=== PATIENT | male | born 1990 | race Caucasian/White ===

== ENCOUNTER 2020-10-10 18:13 | Emergency (ER) | payer BC, SELFPAY ==
--- NOTE | 2020-10-10 18:17 | ED.BACK ---
HPI - Back Pain/Injury General Chief Complaint: Back Pain/Injury Stated Complaint: back pain Time Seen by Provider: 10/10/20 18:17 Source: patient and RN notes reviewed History of Present Illness HPI Narrative: Patient is a 30-year-old male who presents the urgent care with complaints of low back pain radiating to both legs, worse on the left. Patient states that at 9 AM this morning he was walking up the stairs and felt an extreme pull in the lower back. Patient states that this happened approximately 1 year ago, he received a Toradol shot, and waited it out at home for approximately 1 week until it felt better. Patient states he did take 1 dose of naproxen as well as a leftover muscle relaxer. Patient states he is not sure what muscle relaxer that was. States that his pain has not really improved. States that he also used a heating pad throughout the day. Denies of any recent fall, trauma, heavy lifting, pushing or pulling to cause the injury. No other acute complaints. No acute distress noted. Patient aware of the plan of care. Some parts of this dictation were generated by voice recognition software and may contain typographical and/or grammatical inaccuracies. Related Data Allergies Allergy/AdvReac Type Severity Reaction Status Date / Time No Known Allergies Allergy Verified 10/10/20 18:24 Review of Systems Review of Systems: Narrative: CONSTITUTIONAL: Denies fever, chills, or sweats. EYES: Denies visual changes, redness, or discharge. ENT: Denies rhinorrhea, congestion, sore throat, or otalgia. CARDIOVASCULAR: Denies chest pain, palpitations, or edema. RESPIRATORY: Denies cough or dyspnea. GASTROINTESTINAL: Denies abdominal pain, nausea, vomiting, or diarrhea. GENITOURINARY: Denies dysuria or hematuria. SKIN: Denies rash or itching. MUSCULOSKELETAL: Reports of low back pain radiating to bilateral legs, more so on the left NEUROLOGIC: Denies headache, numbness, or weakness. All other systems reviewed are negative, except as documented in HPI. [facility] Family History Family History (Updated 05/22/19 @ 15:16 by DOCTOR UNKNOWN) Grandparent Diabetes mellitus Hypertension Asthma Family history of arthritis Family history of malignant neoplasm of testis Family history of malignant neoplasm of ovary Social History Social History Smoking status: Never smoker Alcohol intake: current Comments At the time of my signature, I reviewed and agree with the nursing past medical, surgical, social, and family history. There is no relevant family history pertinent to the patient complaint. Exam Narrative: Exam Narrative: GENERAL: This is a well-nourished, well-developed patient, in no apparent distress. HEAD: normocephalic, atraumatic. EYES: PERRL. Sclera clear/white. Vision is grossly intact. EARS: External ears normal NOSE: External nose normal with no obvious nasal discharge, nares without redness, no rhinorrhea. THROAT: Mucous membranes moist, posterior pharynx clear. NECK: Neck supple SKIN: warm, intact with no suspicious lesions or rash, good texture and turgor. NEURO: awake, alert, and oriented to person, place and time. There were no obvious focal neurologic abnormalities. EXTREMITIES: No clubbing, cyanosis, or edema. BACK: Diffuse lumbar tenderness with positive bilateral SLE, more noticeable to the left Course Vital Signs Vital signs: Vital Signs Temperature 99.1 F 10/10/20 18:25 Pulse Rate 99 10/10/20 18:25 Respiratory Rate 20 10/10/20 18:25 Blood Pressure 158/97 H 10/10/20 18:25 Pulse Oximetry 100 10/10/20 18:25 Temperature 99.1 F 10/10/20 18:25 Pulse Rate 99 10/10/20 18:25 Respiratory Rate 20 10/10/20 18:25 Blood Pressure 158/97 H 10/10/20 18:25 Pulse Oximetry 100 10/10/20 18:25 Reviewed-patient is informed that they may have pre-hypertension or hypertension based on a blood pressure reading in the department. I recommend the patient call the primary care pro
[2020-10-10 18:25] VITALS: BP 158/97; PULSE 99; RESP 20; TEMP 37.3; O2SAT 100
[2020-10-10] MEDS: predniSONE 20 MG TABLET 60 MG PO (18:31)
== END 2020-10-10 18:45 | disposition home or self-care (01) ==
PROVIDERS: Emergency Provider Nurse Practitioner Family; PCP Internal Medicine
DX: M54.31 Sciatica, right side (principal); S39.012A Strain of muscle, fascia and tendon of lower back, initial encounter; X58.XXXA Exposure to other specified factors, initial encounter; Y93.39 Activity, other involving climbing, rappelling and jumping off
CPT/HCPCS: 99203; G0463; J7512

== ENCOUNTER 2022-04-23 09:54 | Outpatient (CLI) | payer BC, SELFPAY ==
--- NOTE | ~2022-04-23 | XR_ITS ---
EXAMINATION: XR lumbar spine 2-3V DATE: 04/23/2022 10:14 INDICATION: Back pain of lumbar region with sciatica. TECHNIQUE: 3 views of lumbar spine were obtained. COMPARISON: None. FINDINGS: Bone alignment is normal. Vertebral body heights are normal. There is moderately decreased disc height at L4-L5 and severely decreased disc height at L5-S1 with endplate remodeling. Facet join ts are unremarkable. IMPRESSION: 1. Severe lower lumbar spondylosis. Reviewed, dictated and finalized at location A.
== END 2022-04-23 09:55 | disposition home or self-care (01) ==
PROVIDERS: PCP Internal Medicine; Visit Provider Internal Medicine
DX: M54.40 Lumbago with sciatica, unspecified side (principal); M47.817 Spondylosis without myelopathy or radiculopathy, lumbosacral region
CPT/HCPCS: 72100

== ENCOUNTER → 2022-06-11 07:55 | Outpatient (CLI) | payer BC, SELFPAY ==
--- NOTE | ~2022-06-11 | MR_ITS ---
EXAMINATION: MR lumbar spine wo con DATE: 06/11/2022 08:24 INDICATION: Lumbar radiculopathy with low back and bilateral leg pain TECHNIQUE: Magnetic resonance imaging (MRI) of the lumbar spine was performed without intravenous con trast. Sequences included sagittal T2-weighted FSE, sagittal T2-weighted FS FSE, sagittal T1-weighted FSE, and axial T2-weighted FSE. COMPARISON: Lumbar spine radiographs dated 04/23/2022 FINDINGS: 2 mm retrolisthesis L4 on L5. Minimal likely physiologic anterior wedging at T11 and T12. Additional likely developmental posterior wedging at L5 with 20% posterior vertebral body height loss. Severe di sc height loss at L5-S1 and moderate disc height loss at L4-L5, both with mild associated fibrovascul ar degenerative endplate changes. Marrow signal is otherwise normal. Additional mild disc height loss at T11-T12. The conus medullaris terminates at L1-L2. There is normal signal in the caudal spinal co rd. Paravertebral soft tissues are unremarkable. The following disc levels are specifically discussed : T12-L1: The disc does not extend beyond the endplate margin. There is no facet joint osteoarthritis. There is no neural foraminal stenosis. There is no central canal stenosis. L1-L2: The disc does not extend beyond the endplate margin. There is mild bilateral facet joint osteo arthritis. There is no neural foraminal stenosis. There is no central canal stenosis. L2-L3: Minimal left foraminal zone disc protrusion. There is mild bilateral, left greater than right facet joint osteoarthritis. There is mild left neural foraminal stenosis. There is no central canal s tenosis. L3-L4: Small left foraminal zone disc protrusion. There is mild right and minimal left facet joint os teoarthritis. There is mild left neural foraminal stenosis. There is no central canal stenosis. L4-L5: Disc is mildly bulging with annular fissure and superimposed central disc protrusion which ext ends from foraminal zone to foraminal zone. There is mild bilateral facet joint osteoarthritis. There is mild to moderate bilateral neural foraminal stenosis. There is mild central canal stenosis along with narrowing of the lateral recesses, right greater than left. L5-S1: Disc is mildly bulging with annular fissure. Small endplate osteophytes along the inferior end plates of L5 and both the left and right foraminal zones. There is mild bilateral facet joint osteoar thritis. There is moderate right and mild to moderate left neural foraminal stenosis. There is no ying tral canal stenosis. IMPRESSION: 1. Moderate to severe lower lumbar spondylosis. Reviewed, dictated and finalized at location B.
== END ==
PROVIDERS: PCP Internal Medicine; Visit Provider Internal Medicine
DX: M47.26 Other spondylosis with radiculopathy, lumbar region (principal)
CPT/HCPCS: 72148